=== PATIENT | male | born 1980 | race Caucasian/White ===

== ENCOUNTER 2018-07-21 12:52 | Emergency (ER) | payer OTHER ==
[2018-07-21 12:59] VITALS: BP 137/84; PULSE 76; RESP 16; TEMP 98.1
--- NOTE | 2018-07-21 13:20 | ED ---
URI HPI - General Chief Complaint: Upper Respiratory Infection Stated Complaint: CHEST CONGESTION Time Seen by Provider: 07/21/18 13:07 Source: patient Limitations: no limitations - History of Present Illness Initial Comments: 37-year-old male patient presents to the emergency department today for complaints of productive cough. Patient states that one week ago he was working in the basement and developed nasal congestion, sore throat, and slight cough. Patient states that the cough has been becoming more productive. States that his sputum is green with black flecks present. Patient denies any hemoptysis. Denies any fevers or chills with this. Patient states that he has had bronchitis in the past and his symptoms feel similar. States his been taking NyQuil at night but it is not helping. He denies any chest pain or shortness of breath with this. Patient denies any recent rash, abdominal pain, nausea, vomiting, diarrhea, constipation, back pain, numbness, tingling, dizziness, weakness, hematuria, dysuria, urinary urgency, urinary frequency, headache, visual changes, or any other complaints. - Related Data Previous Rx's Medication Instructions Recorded Albuterol Sulfate [Proair Hfa] 1 - 2 puff INHALATION Q6HR PRN #1 07/21/18 inhaler Promethazine 6.25MG/5Ml [Phenergan 6.25 mg PO Q6H #100 ml 07/21/18 Syrup] methylPREDNISolone [Medrol Dose 4 mg PO DIRECTED #1 pack 07/21/18 Pack] Allergies Allergy/AdvReac Type Severity Reaction Status Date / Time codeine Allergy Itching Verified 07/21/18 14:13 amoxicillin [From Augmentin] AdvReac LEG PAIN Verified 07/21/18 14:13 clavulanic acid AdvReac LEG PAIN Verified 07/21/18 14:13 [From Augmentin] Review of Systems ROS Statement: Those systems with pertinent positive or pertinent negative responses have been documented in the HPI. ROS Other: All systems not noted in ROS Statement are negative. Past Medical History Additional Past Medical History / Comment(s): bronchitis. History of Any Multi-Drug Resistant Organisms: None Reported Past Surgical History: No Surgical Hx Reported Past Psychological History: Anxiety Smoking Status: Former smoker Past Alcohol Use History: Rare Past Drug Use History: Marijuana General Exam Limitations: no limitations General appearance: alert, in no apparent distress, other (This is a well- developed, well-nourished adult male patient in no acute distress. Vital signs upon presentation are temperature 98.1F, pulse 76, respirations 16, blood pressure 137/84, pulse ox 98% on room air.) Eye exam: Present: normal appearance, PERRL, EOMI. Absent: scleral icterus, conjunctival injection, periorbital swelling ENT exam: Present: normal exam, mucous membranes moist. Absent: normal oropharynx (Mild pharyngeal erythema. No tonsillar exudate. No tonsillar hypertrophy.) Neck exam: Present: normal inspection. Absent: tenderness, meningismus, lymphadenopathy Respiratory exam: Present: normal lung sounds bilaterally. Absent: respiratory distress, wheezes, rales, rhonchi, stridor Cardiovascular Exam: Present: regular rate, normal rhythm, normal heart sounds. Absent: systolic murmur, diastolic murmur, rubs, gallop, clicks Neurological exam: Present: alert, oriented X3, CN II-XII intact Psychiatric exam: Present: normal affect, normal mood Skin exam: Present: warm, dry, intact, normal color. Absent: rash Course Vital Signs 07/21/18 12:56 Temperature 98.1 F Pulse Rate 76 Respiratory 16 Rate Blood Pressure 137/84 O2 Sat by Pulse 98 Oximetry Medical Decision Making - Medical Decision Making 37-year-old male patient presents the emergency department today for evaluation of cough and sputum production. Physical exam was relatively unremarkable. Lungs are clear to auscultation with good air movement. Vital signs are stable. Oxygen saturation satisfactory. Chest x-ray was obtained and did show some bronchial wall thickening consistent with acute bronchitis. Did discuss findings and results with the patient. We did discuss diagnosis of acute bronchitis. He is instructed to increase fluids to thin secretions. He'll be given a prescription for Pro Air inhaler, cough syrup, and steroids. He does have an appointment with his primary care physician on Friday, he is urged to keep this appointment. Return parameters were discussed in detail. He verbalizes understanding and agrees with this plan. Disposition Clinical Impression: Acute bronchitis Disposition: HOME SELF-CARE Condition: Good Instructions: Acute Bronchitis (ED) Additional Instructions: Increase fluids. Take medications as directed. Follow-up with your primary care physician for recheck in 1-2 days. Return here immediately for any new, worsening, or concerning symptoms. Prescriptions: Albuterol Sulfate [Proair Hfa] 1 - 2 puff INHALATION Q6HR PRN #1 inhaler PRN Reason: Shortness Of Breath methylPREDNISolone [Medrol Dose Pack] 4 mg PO DIRECTED #1 pack Promethazine 6.25MG/5Ml [Phenergan Syrup] 6.25 mg PO Q6H #100 ml Is patient prescribed a controlled substance at d/c from ED?: No Referrals: Collins Walters MD [Primary Care Provider] - 1-2 days Time of Disposition: 14:27
--- NOTE | 2018-07-21 14:03 | XR ---
EXAMINATION TYPE: XR chest 2V DATE OF EXAM: 07/21/2018 COMPARISON: NONE HISTORY: Conductive cough, pain TECHNIQUE: Frontal and lateral views of the chest are obtained. FINDINGS: There is no focal air space opacity, pleural effusion, or pneumothorax seen. The cardiac silhouette size is within normal limits. The osseous structures are intact. There is bronchial wall thickening. IMPRESSION: Correlate for bronchitis, reactive airways disease, follow-up as indicated.
== END 2018-07-21 14:39 | disposition home or self-care (01) ==
LOC: EC 12:52
DX: J20.9 Acute bronchitis, unspecified (principal); Z88.5 Allergy status to narcotic agent; Z88.0 Allergy status to penicillin; Z87.891 Personal history of nicotine dependence
CPT/HCPCS: 71046; 99283